=== PATIENT | female | born 1985 | race African-American/Black ===

== ENCOUNTER 2024-07-09 13:54 | Emergency (ER) | payer MEDICAID ==
[~2024-07-09] VITALS: Ht 167.6 cm; Wt 66.6 kg
[2024-07-09 14:10] VITALS: BP 107/62; TEMP 98.5
[2024-07-09] MEDS: DEXAMETHASONE 10 MG/ML VIAL PO ONE (17:52)
[2024-07-09 18:43] VITALS: PULSE 79; RESP 20; O2SAT 99
[2024-07-09] MEDS: IPRATROPIUM/ALBUTEROL 0.5-3(2.5)MG/3ML NEB HHN ONE (18:43)
[2024-07-09] MEDS: IPRATROPIUM/ALBUTEROL 0.5-3(2.5)MG/3ML NEB ONE (18:45)
[2024-07-09] MEDS ORDERED: ALBU90AE INH (20:08)
[2024-07-09] MEDS ORDERED: ALBU05 NEB (20:08)
[2024-07-09] MEDS ORDERED: BECL10.6 INH (20:38)
== END 2024-07-09 20:38 | disposition home or self-care (01) ==
LOC: ER 14:01
DX: J45.901 Unspecified asthma with (acute) exacerbation (principal); Z79.52 Long term (current) use of systemic steroids; Z79.51 Long term (current) use of inhaled steroids
CPT/HCPCS: 81025; 94640; 99283; J1100; Z7610 ×2